=== PATIENT | male | born 1955 | race Caucasian/White ===

== ENCOUNTER 2016-07-01 17:01 | Emergency (ER) | payer OTHER ==
[2016-07-01 17:07] VITALS: BP 118/83; PULSE 66; TEMP 98.5; BMI 31.1
--- NOTE | 2016-07-01 17:24 | PDOC ---
History of Present Illness - General History Source: Patient, Old Records Exam Limitations: No Limitations <KhadarLin - Last Filed: 07/01/16 17:36> - General History Source: Patient, Spouse Exam Limitations: No Limitations - History of Present Illness Initial Comments: 07/01/16 18:24 The patient is a 61 year old male, with a significant past medical history of hyperlipidemia and depression, who presents to the emergency department with diarrhea for the past 5-6 days. The patient reports 20 episodes of diarrhea 2 days ago, 10 episodes of diarrhea yesterday and 4 episodes of diarrhea earlier today. Today, the patient reports that he noticed some blood per rectum when wiping, prompting him to come to the ED for further evaluation. The patient denies fever, chills, nausea, vomiting or abdominal pain. The patient denies any bad foods or sick contacts. The patient denies any recent courses of antibiotics. The patients is at the bedside. Allergies: None reported. Past Surgical History: None reported. Social History: Non smoker. Denies alcohol or drug use. PCP: In [place], [place]. <Kim Crouch - Last Filed: 07/01/16 18:51> - General Chief Complaint: Diarrhea Stated Complaint: DIARRHEA Time Seen by Provider: 07/01/16 17:15 Past History - Past Medical History Hypercholesterolemia: Yes Psychiatric Problems: Yes (DEPRESSION) - Psycho/Social/Smoking Cessation Hx Anxiety: No Suicidal Ideation: No Smoking History: Never smoked Have you smoked in the past 12 months: No Number of Cigarettes Smoked Daily: 0 Information on smoking cessation initiated: No Hx Alcohol Use: No Drug/Substance Use Hx: No Substance Use Type: None Hx Substance Use Treatment: No <Lin Rubalcava - Last Filed: 07/01/16 17:36> <Kim Crouch - Last Filed: 07/01/16 18:51> - Past Medical History Allergies/Adverse Reactions: Allergies Allergy/AdvReac Type Severity Reaction Status Date / Time No Known Allergies Allergy Verified 07/01/16 17:02 Home Medications: Ambulatory Orders Aspirin [ASA -] 81 mg PO DAILY 05/21/14 Atorvastatin Ca [Lipitor] 10 mg PO HS 05/21/14 Escitalopram Oxalate [Lexapro -] 10 mg PO DAILY 05/21/14 Review of Systems - Review of Systems Able to Perform ROS?: Yes Comments:: 07/01/16 17:57 GENERAL/CONSTITUTIONAL: No fever or chills. No weakness. HEAD, EYES, EARS, NOSE AND THROAT: No change in vision. No ear pain or discharge. No sore throat. CARDIOVASCULAR: No chest pain or shortness of breath. RESPIRATORY: No cough, wheezing, or hemoptysis. GASTROINTESTINAL: +Diarrhea, blood per rectum. No nausea, vomiting or constipation. GENITOURINARY: No dysuria, frequency, or change in urination. MUSCULOSKELETAL: No joint or muscle swelling or pain. No neck or back pain. SKIN: No rash. NEUROLOGIC: No headache, vertigo, loss of consciousness, or change in strength/ sensation. ENDOCRINE: No increased thirst. No abnormal weight change. HEMATOLOGIC/LYMPHATIC: No anemia, easy bleeding, or history of blood clots. ALLERGIC/IMMUNOLOGIC: No hives or skin allergy. <Kim Crouch - Last Filed: 07/01/16 18:51> *Physical Exam - Vital Signs Last Vital Signs Temp Pulse Resp BP Pulse Ox 98.5 F 66 20 118/83 96 07/01/16 17:02 07/01/16 17:02 07/01/16 17:02 07/01/16 17:02 07/01/16 17:02 <Lin Rubalcava - Last Filed: 07/01/16 17:36> - Vital Signs Last Vital Signs Temp Pulse Resp BP Pulse Ox 98.5 F 66 20 118/83 96 07/01/16 17:02 07/01/16 17:02 07/01/16 17:02 07/01/16 17:02 07/01/16 17:02 - Physical Exam Comments: 07/01/16 17:56 GENERAL: Awake, alert, and fully oriented, in no acute distress. HEAD: No signs of trauma. EYES: PERRLA, EOMI, sclera anicteric, conjunctiva clear. ENT: Auricles normal inspection, hearing grossly normal, nares patent, oropharynx clear without exudates. Moist mucosa. NECK: Normal ROM, supple, no lymphadenopathy, JVD, or masses. LUNGS: Breath sounds equal, clear to auscultation bilaterally. No wheezes, and no crackles. HEART: Regular rate and rhythm, normal S1 and S2, no murmurs, rubs or gallops. ABDOMEN: Soft, nontender, normoactive bowel sounds. No guarding, no rebound. No masses. EXTREMITIES: Normal range of motion, no edema. No clubbing or cyanosis. No cords, erythema, or tenderness. NEUROLOGICAL: Cranial nerves II through XII intact. Normal speech, normal gait. SKIN: Warm, dry, normal turgor, no rashes or lesions noted. <Kim Crouch - Last Filed: 07/01/16 18:51> ED Treatment Course - LABORATORY CBC & Chemistry Diagram: 07/01/16 17:35 07/01/16 17:35 <Kim Crouch - Last Filed: 07/01/16 18:51> Medical Decision Making - Medical Decision Making 07/01/16 17:36 61-year-old male with history of hyperlipidemia and depression who presents the emergency department with 6 day history of diarrhea with blood from his rectum when he wiped today. His reported hypotension and tachycardia over the weekend. Differential diagnosis includes but is not limited to: Colitis, diverticulitis, anemia, dehydration, toxic/metabolic derangement. Plan: 1. Labs 2. Urine analysis 3. IV fluids for hydration 4. Observe and reevaluate <Lin Rubalcava - Last Filed: 07/01/16 17:36> *DC/Admit/Observation/Transfer - Discharge Dispostion Admit: No - Attestations Physician Attestion: 07/01/16 17:38 I, Dr. Lin Rubalcava, attest that the scribes documentation that appears above has been prepared under my direction and personally reviewed by me in its entirety. I confirmed that the note above accurately reflects all work, treatment, procedures, and medical decision-making performed by me. <Lin Rubalcava - Last Filed: 07/01/16 17:36> - Attestations Scribe Attestion: 07/01/16 17:53 Documentation prepared by Kim Crouch, acting as director medical economics for Lin Rubalcava MD. <Kim Crouch - Last Filed: 07/01/16 18:51> Diagnosis at time of Disposition: Diarrhea - Discharge Dispostion Condition at time of disposition: Stable
[2016-07-01] MEDS ORDERED: SODIUM CHLORIDE 1,000 ML IV STA ×2 (17:25→18:44)
[2016-07-01 18:06] LABS: BASOPHIL 0.5 % (0-2.0); EOSINOPHIL 3.8 % (0-4.5); MCHC 34.2 g/dl (32.0-35.9); MEAN CELL VOLUME 87.9 fl (80-96); MEAN PLT VOLUME 7.4 fl (7.5-11.1); NEUTROPHILS 51.4 % (42.8-82.8); PLATELET COUNT 287 K/MM3 (134-434); RDW 12.8 % (11.9-15.9); WHITE BLOOD COUNT 5.2 K/mm3 (4.0-10.8)
[2016-07-01 18:17] LABS: URINE APPEARANCE Clear; URINE BILIRUBIN Negative (NEGATIVE); URINE GLUCOSE (UA) Negative (NEGATIVE); URINE KETONE Negative (NEGATIVE); URINE LEUK ESTERASE Negative (NEGATIVE); URINE NITRITE Negative (NEGATIVE); URINE PROTEIN Negative (NEGATIVE); URINE UROBILINOGEN 0.2 E.U/dl (0.2-1.0)
[2016-07-01 18:33] LABS: ALBUMIN 3.6 g/dl (3.5-5.0); ALK PHOS 35 U/L (32-92); ANION GAP 7 (8-16); BILIRUBIN,TOTAL 0.8 mg/dl (0.2-1.0); CALCIUM 9.1 mg/dl (8.4-10.2); CO2 27 mmol/L (22-28); CREATININE 1.2 mg/dl (0.6-1.3); GLUCOSE,RANDOM 99 mg/dl (74-106); PHOSPHOROUS 4.8 mg/dl (2.5-4.6); SGOT/AST 25 U/L (10-42); SGPT/ALT 31 U/L (10-40); TOT PROT 6.2 g/dl (6.4-8.3)
[2016-07-01 19:17] LABS: URINE BLOOD 2+ (NEGATIVE); URINE COLOR YELLOW
--- NOTE | 2016-07-01 19:21 | PDOC ---
*Physical Exam - Vital Signs Last Vital Signs Temp Pulse Resp BP Pulse Ox 98.5 F 66 20 118/83 96 07/01/16 17:02 07/01/16 17:02 07/01/16 17:02 07/01/16 17:59 07/01/16 17:02 ED Treatment Course - LABORATORY CBC & Chemistry Diagram: 07/01/16 17:35 07/01/16 17:35 - ADDITIONAL ORDERS Additional order review: Laboratory Results 07/01/16 07/01/16 07/01/16 17:35 17:35 17:35 Sodium 136 Potassium 5.5 H D Chloride 102 Carbon Dioxide 27 Anion Gap 7 L BUN 14 D Creatinine 1.2 Creat Clearance w eGFR > 60 Random Glucose 99 Calcium 9.1 Phosphorus 4.8 H Magnesium 2.0 Total Bilirubin 0.8 D AST 25 D ALT 31 D Alkaline Phosphatase 35 D Total Protein 6.2 L Albumin 3.6 Lipase 27 Urine Color Yellow Urine Appearance Clear Urine pH 5.0 Ur Specific [place] 1.015 Urine Protein Negative Urine Glucose (UA) Negative Urine Ketones Negative Urine Blood 2+ H Urine Nitrite Negative Urine Bilirubin Negative Urine Urobilinogen 0.2 e.u/dl Ur Leukocyte Esterase Negative 07/01/16 17:35 RBC 5.02 MCV 87.9 MCHC 34.2 RDW 12.8 MPV 7.4 L Neutrophils % 51.4 Lymphocytes % 25.9 D Monocytes % 18.4 H Eosinophils % 3.8 Basophils % 0.5 - Medications Given in the ED: ED Medications Discontinued Medications Generic Name Dose Route Start Last Admin Trade Name Freq PRN Reason Stop Dose Admin Sodium Chloride 1,000 mls @ 1,000 mls/hr 07/01/16 17:25 07/01/16 17:59 Normal Saline - IV 07/01/16 18:24 1,000 mls/hr ASDIR STA Administration Progress Note - Progress Note Progress Note: Care of this patient was transferred to nd from Dr. Rubalcava at 1900 hrs. Patient is a 61-year-old male who comes in complaining of 4 days of diarrhea. Patient initially had multiple episodes of diarrhea a day and over the last couple a days has had decreasing amounts tell today he only had a few episodes. Patient orally hydrated at home prior to coming in however he had a workup. In the emergency room. Patient's white count was negative there was no left shift. His chemistries were unremarkable with the exception of a potassium of 5.5 patient's kidney function was normal. Patient is also given IV normal saline here in the emergency room a total of 2 L after his second liter finishes patient will be discharged home. *DC/Admit/Observation/Transfer Diagnosis at time of Disposition: Diarrhea - Discharge Dispostion Disposition: HOME Condition at time of disposition: Stable Admit: No - Patient Instructions Printed Discharge Instructions: Diarrhea (Alternative Therapy), DI for Diarrhea and Traveler's Diarrhea -- Adult Additional Instructions: Continue to stay well-hydrated now that you are well hydrated here in the emergency room. You can purchase some [id number] Imodium and take as directed on the box if you have any further diarrhea. Return to the emergency department immediately with ANY new, persistent or worsening symptoms. Continue any medications as previously prescribed by your physician. You should follow up with your primary doctor as soon as possible regarding today's emergency department visit. . Please make sure your doctor reviews the results of your emergency evaluation. Thank you for coming to the Emergency Department today for your care. It was a pleasure to see you today. Please note that your evaluation is INCOMPLETE until you follow-up with your doctor.
[2016-07-01 19:38] LABS: URINE BACTERIA FEW /hpf (NEGATIVE); URINE WBC 0-2 (3-5)
--- NOTE | 2016-07-02 13:16 | EKG ---
Test Reason : Blood Pressure : / mmHG Vent. Rate : 058 BPM Atrial Rate : 058 BPM P-R Int : 162 ms QRS Dur : 080 ms QT Int : 416 ms P-R-T Axes : 031 039 003 degrees QTc Int : 408 ms SINUS BRADYCARDIA OTHERWISE NORMAL ECG NO PREVIOUS ECGS AVAILABLE Confirmed by FELIX GAVIN, FUNMILAYO ([id number]) on 07/02/2016 1:16:28 PM Referred By: LOLITA Confirmed By:FUNMILAYO WASHINGTON MD
== END 2016-07-01 20:30 | disposition home or self-care (01) ==
LOC: FER 17:01
PROC: 3E0337Z Introduction of Electrolytic and Water Balance Substance into Peripheral Vein, Percutaneous Approach (ICD-10-PCS; principal; 2016-07-01)
DX: R19.7 Diarrhea, unspecified (principal); E78.5 Hyperlipidemia, unspecified; F32.9 Major depressive disorder, single episode, unspecified
CPT/HCPCS: 36415; 80053; 81003; 81015; 83690; 83735; 84100; 85025; 93005; 99282-25